=== PATIENT | female | born 1990 | race Two or more races ===

== ENCOUNTER 2018-12-26 19:54 | Emergency (ER) | payer OTHER ==
[~2018-12-26] VITALS: Ht 157.5 cm; Wt 68.0 kg
[2018-12-26] MEDS ORDERED: PRENATABS FA T1 EACH (20:10)
== END 2018-12-27 03:48 | disposition home or self-care (01) ==
LOC: ER 19:54
DX: B34.9 Viral infection, unspecified (principal); R30.0 Dysuria

== ENCOUNTER 2019-02-07 11:12 | Inpatient (IN) | payer OTHER ==
[~2019-02-07] VITALS: Ht 157.5 cm; Wt 81.6 kg
[~2019-02-07 11:12] MED LIST: PRENATABS FA T1 EACH
== END 2019-02-09 16:25 | disposition home or self-care (01) | DRG 807 ==
LOC: OB/GYN 11:12 → LDR 11:12 → SURH 11:58 → OB/GYN 22:34
PROVIDERS: ADMIT Obstetrics & Gynecology
PROC: 10E0XZZ Delivery of Products of Conception, External Approach (ICD-10-PCS; principal; 2019-02-07)
PROC: 4A1HXCZ Monitoring of Products of Conception, Cardiac Rate, External Approach (ICD-10-PCS; 2019-02-07)
PROC: 0UQGXZZ Repair Vagina, External Approach (ICD-10-PCS; 2019-02-07)
PROC: 4A033R1 Measurement of Arterial Saturation, Peripheral, Percutaneous Approach (ICD-10-PCS; 2019-02-07)
DX: O71.4 Obstetric high vaginal laceration alone (principal); Z37.0 Single live birth; Z3A.38 38 weeks gestation of pregnancy